=== PATIENT | female | born 1995 | race Caucasian/White ===

== ENCOUNTER 2017-07-04 22:41 | Emergency (ER) | payer BC ==
[~2017-07-04] VITALS: Ht 167.6 cm; Wt 83.9 kg
[2017-07-04 23:50] LABS: MICROSCOPIC NOT IND
[2017-07-04 23:53] LABS: CULTURE INDICATED? NO
[2017-07-05] MEDS ORDERED: MAALOX/HYOSCYAMINE/LIDOCAINE 45 ML BTL PO ONE
[2017-07-05] MEDS ORDERED: FAMOTIDINE 20 MG TABLET PO ONE
[2017-07-05 00:01] LABS: BASOPHILS # (AUTO) 0.03 x10^3/uL (0-0.1); BASOPHILS % (AUTO) 0 % (0-1); EOSINOPHILS # (AUTO) 0.23 x10^3/uL (0-0.4); EOSINOPHILS % (AUTO) 3 % (1-7); LYMPHOCYTES # (AUTO) 3.98 x10^3/uL (1-3.4); LYMPHOCYTES % (AUTO) 51 % (22-44); MD NO; MEAN CORPUSCULAR HEMOGLOBIN 28.9 pg (27.0-34.8); MEAN CORPUSCULAR HGB CONC 33.8 g/dL (32.4-35.8); MEAN CORPUSCULAR VOLUME 85.4 fL (80-100); MEAN PLATELET VOLUME 8.5 fL (7.4-10.4); MONOCYTES # (AUTO) 0.65 x10^3/uL (0.2-0.8); MONOCYTES % (AUTO) 8 % (2-9); NEUTROPHILS # (AUTO) 2.98 x10^3/uL (1.8-6.8); NEUTROPHILS % (AUTO) 38 % (42-75); PLATELET COUNT 308 x10^3/uL (130-400); RED BLOOD COUNT 4.49 x10^6/uL (3.82-5.3); RED CELL DISTRIBUTION WIDTH 12.7 % (9.6-15.2)
[2017-07-05] MEDS ORDERED: MAALOX/HYOSCYAMINE/LIDOCAINE 45 ML BTL ONE (00:12)
[2017-07-05] MEDS ORDERED: FAMOTIDINE 20 MG TABLET ONE (00:12)
[2017-07-05 00:13] LABS: ALBUMIN 3.4 g/dL (3.4-5.0); ANION GAP 8 mmol/L (5-15); CALCIUM 8.9 mg/dL (8.5-10.1); CHLORIDE 107 mmol/L (98-107)
[2017-07-05 00:19] LABS: ALANINE AMINOTRANSFERASE 30 U/L (12-78); ALKALINE PHOSPHATASE 79 U/L (45-117); BILIRUBIN,TOTAL 0.3 mg/dL (0.2-1.0); CREATININE 0.66 mg/dL (0.55-1.02)
[2017-07-05] MEDS ORDERED: ALBU8.5H8 IH (00:22)
[2017-07-05] MEDS ORDERED: KETOROLAC 30 MG/1 ML IVPush ONE (02:00)
[2017-07-05] MEDS ORDERED: SODIUM CHLORIDE 0.9% 1,000ML IVBOLUS ONE (02:00)
[2017-07-05] MEDS ORDERED: KETOROLAC 30 MG/1 ML ONE (02:18)
[2017-07-05 03:39] VITALS: BP 113/78
[2017-07-05] MEDS ORDERED: OMNIPAQUE 350 MG/ML, 100ML BOTTLE ONE (04:08)
== END 2017-07-05 03:41 | disposition home or self-care (01) ==
LOC: ED 07-05 01:10
DX: R10.13 Epigastric pain (principal)
CPT/HCPCS: 36415; 74177; 76700; 80053; 81003; 83690; 84703; 85025; 96361; 96374; 99285; J1885; J7030; Q9967